=== PATIENT | male | born 1975 | race Two or more races ===

== ENCOUNTER 2016-07-19 19:38 | Inpatient (IN) | payer OTHER ==
[2016-07-19] MEDS ORDERED: ONDANSETRON 4 MG/2 ML VIAL IVP ONE (20:21)
[2016-07-19] MEDS ORDERED: NS 1,000 ML IV ONE (20:21)
--- NOTE | 2016-07-19 20:21 | EDPHY ---
H & P Time Seen by Provider: 07/19/16 19:58 HPI/ROS: CHIEF COMPLAINT: Right inguinal pain HISTORY OF PRESENT ILLNESS: The patient is a 41-year-old male who presents to the emergency department with worsening "hernia pain." The patient was diagnosed with a right inguinal hernia over year ago. It was confirmed by ultrasound in May of this year. He was told by the surgeon to come to the emergency department if he developed greater than 8/10 groin pain. For the last day he has had increasing right groin pain. It is now 9/10. It does not radiate. He denies nausea vomiting. No fevers or chills. REVIEW OF SYSTEMS: My complete review of systems is negative except as mentioned in the HPI. Past Medical/Surgical History: Includes diagnosed inguinal hernia Past surgical history: Denies Social history: The patient denies smoking Smoking Status: Never smoked Physical Exam: Vitals noted GENERAL: Mild acute distress, alert. HEENT: Eyes normal to inspection, normal pharynx, no signs of dehydration. NECK: No thyromegaly, no lymphadenopathy, supple. RESPIRATORY: Clear to auscultation bilaterally, no rales, rhonchi or wheezing. CVS: Regular rate and rhythm, no rubs, murmurs, or gallops. ABDOMEN: Soft, nontender, nondistended, no organomegaly. Groin: Right inguinal masses. Mildly tenderness palpation. Not reducible. No erythema or warmth. BACK: Normal to inspection, no CVA tenderness. SKIN: Normal color, no rash, warm, dry. No pallor. EXTREMITIES: No pedal edema, normal. NEURO/PSYCH: Alert and oriented, normal mood and affect, normal motor sensory exam. Constitutional: Initial Vital Signs Temperature (C) 36.8 C 07/19/16 19:40 Heart Rate 99 07/19/16 19:40 Respiratory Rate 18 07/19/16 19:40 Blood Pressure 166/102 H 07/19/16 19:40 O2 Sat (%) 98 07/19/16 19:40 O2 Delivery Mode Room Air Allergies/Adverse Reactions: No Known Allergies Allergy (Unverified 07/19/16 19:48) Home Medications: Medication Instructions Recorded NK [No Known Home Meds] 07/19/16 Medical Decision Making ED Course/Re-evaluation: A sensory scientist was used for patient interactions. In the emergency department I discussed possible etiologies with the patient. Answered all his questions. I contacted Dr. Eatsman from surgery. He will come to the emergency department to evaluate the patient. The patient was given an IV and had laboratory studies drawn. He is given morphine 4 mg IV for pain and Zofran 4 mg IV for nausea. Dr. Eastman came to the emergency department evaluated the patient. He feels the patient has an incarcerated hernia. He will admit the patient for further treatment and care. Differential Diagnosis: My differential includes but is not limited to hernia, incarcerated hernia, strangulated hernia, small-bowel obstruction, perforation, lymphadenopathy, LG - Data Points Laboratory Results: Laboratory Results 07/19/16 20:25 07/19/16 20:25 07/19/16 07/19/16 20:25 20:25 WBC 9.74 10^3/uL H 10^3/uL (3.80-9.50) RBC 5.43 10^6/uL 10^6/uL (4.40-6.38) Hgb 15.6 g/dL g/dL (13.7-17.5) Hct 45.6 % % (40.0-51.0) MCV 84.0 fL fL (81.5-99.8) MCH 28.7 pg pg (27.9-34.1) MCHC 34.2 g/dL g/dL (32.4-36.7) RDW 12.8 % % (11.5-15.2) Plt Count 242 10^3/uL 10^3/uL (150-400) MPV 10.6 fL fL (8.7-11.7) Neut % (Auto) 54.8 % % (39.3-74.2) Lymph % (Auto) 31.2 % % (15.0-45.0) [place] % (Auto) 9.0 % % (4.5-13.0) Eos % (Auto) 2.8 % % (0.6-7.6) Baso % (Auto) 0.9 % % (0.3-1.7) Nucleat RBC Rel Count 0.0 % % (0.0-0.2) Absolute Neuts (auto) 5.33 10^3/uL 10^3/uL (1.70-6.50) Absolute Lymphs (auto) 3.04 10^3/uL H 10^3/uL (1.00-3.00) Absolute Monos (auto) 0.88 10^3/uL H 10^3/uL (0.30-0.80) Absolute Eos (auto) 0.27 10^3/uL 10^3/uL (0.03-0.40) Absolute Basos (auto) 0.09 10^3/uL 10^3/uL (0.02-0.10) Absolute Nucleated RBC 0.00 10^3/uL 10^3/uL (0-0.01) Immature Gran % 1.3 % H % (0.0-1.1) Immature Gran # 0.13 10^3/uL H 10^3/uL (0.00-0.10) Sodium 135 mEq/L mEq/L (134-144) Potassium 4.4 mEq/L mEq/L (3.5-5.2) Chloride 100 mEq/L mEq/L (97-110) Carbon Dioxide 28 mEq/l mEq/l (22-31) Anion Gap 7 mEq/L L mEq/L (8-16) BUN 20 mg/dL mg/dL (7-23) Creatinine 1.0 mg/dL mg/dL (0.7-1.3) Estimated GFR > 60 Glucose 100 mg/dL mg/dL (70-100) Calcium 9.3 mg/dL mg/dL (8.5-10.4) Medications Given: Discontinued Medications Sodium Chloride (Ns) 1,000 mls @ 0 mls/hr IV ONCE ONE PRN Reason: Wide Open Stop: 07/19/16 20:22 Last Admin: 07/19/16 20:31 Dose: 1,000 mls Morphine Sulfate (Morphine) 4 mg IVP EDNOW ONE Stop: 07/19/16 20:22 Last Admin: 07/19/16 20:32 Dose: 4 mg Ondansetron HCl (Zofran) 4 mg IVP EDNOW ONE Stop: 07/19/16 20:22 Last Admin: 07/19/16 20:32 Dose: 4 mg Departure - Departure Disposition: [facility] Clinical Impression: Hernia, Incarcerated right inguinal hernia Condition: Good Referrals: UNKNOWN,DR [Other] - As per Instructions
[2016-07-19 20:43] LABS: % IMMATURE GRANULYOCYTES 1.3 % (0.0-1.1); ABSOLUTE IMMATURE GRANULOCYTES 0.13 10^3/uL (0.00-0.10); ADD DIFF? NO; ADD MORPH? NO; ADD SCAN? NO; ATYPICAL LYMPHOCYTE FLAG 0 (0-99); FRAGMENT RBC FLAG 0 (0-99); HEMATOCRIT 45.6 % (40.0-51.0); HEMOGLOBIN 15.6 g/dL (13.7-17.5); LEFT SHIFT FLG 10 (0-99); LIPEMIA HEMOLYSIS FLAG 90 (0-99); MEAN CELL HEMOGLOBIN 28.7 pg (27.9-34.1); MEAN CELL HEMOGLOBIN CONCENTR. 34.2 g/dL (32.4-36.7); MEAN PLATELET VOLUME 10.6 fL (8.7-11.7); PLATELET CLUMPS FLAG 0 (0-99); PLATELET COUNT 242 10^3/uL (150-400); RED BLOOD CELL COUNT 5.43 10^6/uL (4.40-6.38); RED CELL DISTRIBUTION WIDTH 12.8 % (11.5-15.2)
[2016-07-19 20:54] LABS: ANION GAP 7 mEq/L (8-16); CALCIUM 9.3 mg/dL (8.5-10.4); CARBON DIOXIDE 28 mEq/l (22-31); CHLORIDE 100 mEq/L (97-110); GLOMERULAR FILTRATION RATE > 60; GLUCOSE 100 mg/dL (70-100); POTASSIUM 4.4 mEq/L (3.5-5.2); SODIUM 135 mEq/L (134-144)
[2016-07-19 21:10] LABS: COLOR COLORLESS; LEUKOCYTE ESTERASE,URINE NEGATIVE (NEGATIVE); NITRITE,URINE NEGATIVE (NEGATIVE)
[2016-07-19] MEDS: LR 1,000 ML IV SCH (23:59)
[2016-07-20] MEDS: KETOROLAC 15 MG/1 ML SDV IVP SCH ×4 (00:01→17:56)
--- NOTE | 2016-07-20 00:08 | GHP ---
DATE OF ADMISSION: 07/19/2016 A 41-year-old gentleman who presents to the hospital with acute worsening of an incarcerated hernia. The patient has had a hernia for at least 1 year. He works as a jackhammer splitter operator and today, started havi ng increased pain in the right groin. He ate dinner at 7 o'clock in the evening, after which he got severe worsening of his pain. Denies any vomiting, nausea, diarrhea, but he is not passing any fla tus. PAST MEDICAL HISTORY: Not significant for any other medications, hospitalizations, or surgeries. FAMILY HISTORY: Unremarkable. ALLERGIES: He has no known drug allergies. MEDICATIONS: Takes no medication. REVIEW OF SYSTEMS: Unremarkable except previous dental work done. PHYSICAL EXAMINATION: VITAL SIGNS: Today, the patient has a temperature of 36.9, heart rate of 89, blood pressure of 156/95. Respiratory rate of 18, saturating 95% on room air. HEENT: His sclerae are anicteric. Oropharynx is without lesions. He has had previous dental work. There is nothing that appears to be in disrepair. Extraocular motions are intact. No JVD, thyromegaly. Trachea is midline. LUNGS: Clear. HEART: Regular heart tones. S1 and S2. ABDOMEN: Softly distended. Non tender to palpation. Right groin has an incarcerated hernia which is mildly tender to palpation. U nable to reduce it at this time. His left groin has no hernia. EXTREMITIES: Without edema. Good range of motion. Pulses 2+ over 2+ radial, femoral, and dorsalis pedis. SKIN: Normal turgor and t one. PSYCH: He has good mood and affect. LABORATORY STUDIES: White blood cell count of 9.7, hemoglobin of 15 with a hematocrit of 45, platel et count of 242 without a left shift. He has sodium 135, potassium 4.4, chloride 100, bicarb 28, BU N 22. Creatinine 1.0. Calcium 9.3 with a glucose of 100. UA is negative. IMPRESSION: Incarcerated inguinal hernia. PLAN: Laparoscopic inguinal hernia repair. Risks, benefits, and alternatives have been outlined to the patient through an speed winder. All questions were addressed. We will plan to proceed at the earliest opportunity. The patient ate just recently. Risk of aspiration outweighed the risk of inf arction of bowel. Therefore, we are waiting until an appropriate time, which we will proceed with s [place]. If the patient's condition worsens in the interim, we will consider emergent procedure. /[id number]/MODL
[2016-07-20] MEDS ORDERED: LIDOCAINE 1% 30 ML SDV ONE (05:48)
[2016-07-20] MEDS ORDERED: SKIN ADHESIVE (DERMABOND) 1 EACH TP ONE (05:48)
[2016-07-20] MEDS ORDERED: BUPIVACAINE 0.5% 30 ML SDV ONE (05:48)
[2016-07-20] MEDS ORDERED: KETOROLAC 30 MG/1 ML SDV ONE (05:54)
[2016-07-20] MEDS ORDERED: DEXAMETHASONE 4 MG/ML VIAL ONE (05:54)
[2016-07-20] MEDS ORDERED: ROCURONIUM 50 MG/5 ML VIAL ONE (05:54)
[2016-07-20] MEDS ORDERED: MIDAZOLAM 2 MG/2 ML VIAL ONE (05:54)
[2016-07-20] MEDS ORDERED: ONDANSETRON 4 MG/2 ML VIAL ONE (05:54)
[2016-07-20] MEDS ORDERED: LIDOCAINE 2% 5 ML SDV ONE (05:55)
[2016-07-20] MEDS ORDERED: PROPOFOL 200 MG/20 ML VIAL ONE (05:56)
[2016-07-20] MEDS ORDERED: fentaNYL 100 MCG/2 ML INJ ONE ×2 (05:56→07:07)
[2016-07-20] MEDS ORDERED: SUGAMMADEX SODIUM 200 MG/2 ML VIAL IVP ONE (06:48)
--- NOTE | 2016-07-20 06:56 | POSTOPPROG ---
Post Op Note Date of Operation: 07/20/16 Surgeon: Blair Eastman Anesthesiologist: Flako Anesthesia: LMA Pre-op Diagnosis: rih incarcerated Post-op Diagnosis: same Indication: pain Procedure: Lap TEP RIH with 3D max Findings: incarcerated indirect with lipoma Inf/Abcess present in the surg proc area at time of surgery?: No Complications: none Specimen(s): none
[2016-07-20] MEDS ORDERED: HYDROmorphONE/DILAUDID 1 MG/ML SYR ONE (07:07)
--- NOTE | 2016-07-20 08:33 | GOP ---
DATE OF OPERATION: SURGEON: Blair Eastamn MD ANESTHESIA: General LMA anesthesia was used. ANESTHESIOLOGIST: Dr. Arriola. PREOPERATIVE DIAGNOSIS: Incarcerated inguinal hernia. POSTOPERATIVE DIAGNOSIS: Incarcerated inguinal hernia. PROCEDURE PERFORMED: Laparoscopic total extraperitoneal inguinal hernia repair with 3D Bard meshmariela. FINDINGS: SPECIMENS: No specimens. INDICATIONS: This 41-year-old gentleman presents with incarcerated inguinal hernia. DESCRIPTION OF PROCEDURE: Patient was brought into the operating room. After induction of general LMA anesthesia in the supine position, the abdomen was prepped with chlorhexidine and draped sterile ly. Time-out procedure was performed according to the institutional standards. Local anesthetic is infused in the skin and subcu tissues of the trocar sites. Open preperitoneal balloon dissection a nd trocar placement was then performed on the right side of the rectus sheath. A large incarcerated inguinal hernia was identified. This was reduced. The distal end of the hernia sac was very thick and stuck to the chest wall. This was divided bluntly and closed using Ligaclips. After insuring lipoma of the cord was also reduced, the indirect inguinal hernia was then patched using a 3D Max me sh to interpose between the hernia defect in the abdominal wall and the peritoneal sac. After insur ing hemostasis, the working trocars were removed, the preperitoneal space was deflated, and the fasc ia was then reapproximated using 0 Vicryl at the level of the fascia the umbilical incision. All 3 ports were then reapproximated at skin level using 4-0 Monocryl. Dermabond was applied, the patient awakened, and LMA removed. Needle, instrument, and sponge counts were verified to be correct x2. He was taken to recovery room in stable condition. No immediate complications. COMPLICATIONS: No complications. /[id number]/MODL
[2016-07-20] MEDS: HYDROmorphONE/DILAUDID 1 MG/ML SYR IVP PRN ×3 (09:32→22:12)
[2016-07-20] MEDS: oxyCODONE IR 5 MG TAB PO PRN ×3 (09:33→20:22)
[2016-07-20] MEDS: ONDANSETRON 4 MG/2 ML VIAL IVP PRN (12:27)
--- NOTE | 2016-07-20 16:15 | SOAPPROG ---
SOAP Progress Note Assessment/Plan: Assessment/Plan: Pain worsening post op possible missed appy in the presence of prior incarcerated RIH Plan on CT scan this evening. 07/20/16 16:14 Objective: Vital Signs Temp Pulse Resp BP Pulse Ox 36.8 C 89 16 134/77 H 97 07/20/16 10:54 07/20/16 10:54 07/20/16 10:54 07/20/16 10:54 07/20/16 10:54 07/19/16 07/20/16 07/21/16 05:59 05:59 05:59 Intake Total 1504 800 Output Total 0 Balance 1504 800 ICD10 Worksheet Patient Problems: Problems Problem Status Onset Hernia Acute Incarcerated right inguinal hernia Acute
[2016-07-20] MEDS ORDERED: IOPAMIDOL (ISOVUE 370) 100 ML BTL IV ONE (19:57)
[2016-07-21] MEDS: KETOROLAC 15 MG/1 ML SDV IVP SCH ×5 (00:55→23:34)
[2016-07-21] MEDS: HYDROmorphONE/DILAUDID 1 MG/ML SYR IVP PRN ×3 (03:50→21:08)
[2016-07-21] MEDS: LR 1,000 ML IV SCH ×2 (05:22→16:34)
[2016-07-21] MEDS: oxyCODONE IR 5 MG TAB PO PRN ×3 (09:24→23:28)
--- NOTE | 2016-07-21 15:34 | SOAPPROG ---
SOAP Progress Note Assessment/Plan: Assessment/Plan: Pain worsening post op CT negative Incisional c/d Abd tender around incisions Poor appetite with oxycodone No BM passing flatus Incisional pain more than expected Morphine x1 Reassess over next 12-24 hr. 07/20/16 16:14 07/21/16 15:31 Objective: Vital Signs Temp Pulse Resp BP Pulse Ox 36.8 C 78 18 121/76 H 93 07/21/16 15:24 07/21/16 15:24 07/21/16 15:24 07/21/16 15:24 07/21/16 15:24 07/20/16 07/21/16 07/22/16 05:59 05:59 05:59 Intake Total 3101 Balance 3101 ICD10 Worksheet Patient Problems: Problems Problem Status Onset Hernia Acute Incarcerated right inguinal hernia Acute
[2016-07-21] MEDS: ONDANSETRON 4 MG/2 ML VIAL IVP PRN (17:24)
[2016-07-22] MEDS: LR 1,000 ML IV SCH ×2 (03:21→12:38)
[2016-07-22] MEDS: KETOROLAC 15 MG/1 ML SDV IVP SCH ×3 (05:48→17:46)
[2016-07-22] MEDS: oxyCODONE IR 5 MG TAB PO PRN ×2 (08:45→20:20)
[2016-07-22] MEDS: ONDANSETRON 4 MG/2 ML VIAL IVP PRN ×2 (13:58→17:47)
[2016-07-22] MEDS ORDERED: IOPAMIDOL (ISOVUE-300) 100 ML BTL IV ONE (16:47)
[2016-07-22 17:06] LABS: % IMMATURE GRANULYOCYTES 1.8 % (0.0-1.1); ADD DIFF? NO; ADD MORPH? NO; ADD SCAN? NO; ATYPICAL LYMPHOCYTE FLAG 0 (0-99); FRAGMENT RBC FLAG 0 (0-99); HEMATOCRIT 46.4 % (40.0-51.0); HEMOGLOBIN 15.7 g/dL (13.7-17.5); LEFT SHIFT FLG 20 (0-99); LIPEMIA HEMOLYSIS FLAG 90 (0-99); MEAN CELL HEMOGLOBIN 28.1 pg (27.9-34.1); MEAN CELL HEMOGLOBIN CONCENTR. 33.8 g/dL (32.4-36.7); MEAN CELL VOLUME 83.2 fL (81.5-99.8); MEAN PLATELET VOLUME 10.1 fL (8.7-11.7); PLATELET CLUMPS FLAG 0 (0-99); PLATELET COUNT 240 10^3/uL (150-400); RED BLOOD CELL COUNT 5.58 10^6/uL (4.40-6.38); RED CELL DISTRIBUTION WIDTH 12.7 % (11.5-15.2)
[2016-07-22] MEDS ORDERED: hydrALAZINE 20 MG/ML VIAL IVP PRN (17:21)
--- NOTE | 2016-07-22 17:26 | SOAPPROG ---
SOAP Progress Note Assessment/Plan: Assessment/Plan: CT abdomen negative Tolerated diet +BM, 500 ml u/o this pm Bladder scan 120 ml Vomited x2 liquid with new onset headache- prior hx of CVA age 14 gets chronic h/a with change in MS Incisional c/d Abd tender around incisions passing flatus Incisional pain more than expected Morphine Hydralazine CT head CBC, chem stat Reassess over next 12-24 hr. 07/20/16 16:14 07/21/16 15:31 07/22/16 17:24 Objective: Vital Signs Temp Pulse Resp BP Pulse Ox 36.7 C 80 14 151/107 H 95 07/22/16 16:31 07/22/16 16:31 07/22/16 16:31 07/22/16 16:31 07/22/16 16:31 Laboratory Results 07/22/16 16:58 07/21/16 07/22/16 07/23/16 05:59 05:59 05:59 Intake Total 3101 3436 Output Total 800 Balance 3101 6549 ICD10 Worksheet Patient Problems: Problems Problem Status Onset Hernia Acute Incarcerated right inguinal hernia Acute
[2016-07-22 17:42] LABS: ALANINE AMINOTRANSFERASE 37 IU/L (21-72); ALBUMIN 4.4 g/dL (3.5-5.0); ALKALINE PHOSPHATASE 73 IU/L (38-126); ANION GAP 12 mEq/L (8-16); ASPARTATE AMINOTRANSFERASE 24 IU/L (17-59); BILIRUBIN,TOTAL 0.6 mg/dL (0.1-1.4); CALCIUM 10.5 mg/dL (8.5-10.4); CARBON DIOXIDE 27 mEq/l (22-31); CHLORIDE 95 mEq/L (97-110); CREATININE 0.7 mg/dL (0.7-1.3); GLOMERULAR FILTRATION RATE > 60; GLUCOSE 123 mg/dL (70-100); POTASSIUM 4.6 mEq/L (3.5-5.2); SODIUM 134 mEq/L (134-144); TOTAL PROTEIN 7.8 g/dL (6.3-8.2)
[2016-07-22] MEDS ORDERED: BISACODYL 10 MG SUPP PR PRN (20:42)
[2016-07-22] MEDS ORDERED: MAGNESIUM HYDROXIDE 30 ML UDCUP PO PRN (20:42)
[2016-07-22] MEDS ORDERED: LACTULOSE 20 GM/30 ML UDCUP PO PRN (20:42)
[2016-07-22] MEDS ORDERED: POLYETHYLENE GLYCOL 3350 17 GM PKT PO PRN (20:42)
[2016-07-22] MEDS: SENNOSIDES/DOCUSATE SODIUM TAB PO SCH (21:37)
[2016-07-23] MEDS: KETOROLAC 15 MG/1 ML SDV IVP SCH ×5 (00:10→23:14)
[2016-07-23] MEDS: LR 1,000 ML IV SCH ×3 (01:32→22:20)
[2016-07-23] MEDS: oxyCODONE IR 5 MG TAB PO PRN ×3 (07:34→23:14)
[2016-07-23] MEDS: SENNOSIDES/DOCUSATE SODIUM TAB PO SCH ×2 (09:13→20:08)
--- NOTE | 2016-07-23 10:20 | SOAPPROG ---
SOAP Progress Note Assessment/Plan: Assessment/Plan: CT abdomen negative 07/[address] head 07/22 negative Tolerated diet +BM No further emesis today vomited x2 liquid with new onset headache- 07/22 prior hx of CVA age 14 gets chronic h/a with change in MS AA&O RRR CTAAbd NABS Incisions c/d, tender around incisions, no signs of infection Incisional pain more than expected Morphine Hydralazine CT head normal mild leucocytosis Reassess over next 12-24 hr. anticipate d/c tomorrow 07/23/16 10:17 Objective: Vital Signs Temp Pulse Resp BP Pulse Ox 37 C 70 16 109/75 95 07/23/16 07:28 07/23/16 07:28 07/23/16 07:28 07/23/16 07:28 07/23/16 07:28 Laboratory Results 07/22/16 16:58 07/22/16 16:58 07/22/16 07/23/16 07/24/16 05:59 05:59 05:59 Intake Total 5492 3084 Output Total 800 Balance 9444 3086 ICD10 Worksheet Patient Problems: Problems Problem Status Onset Hernia Acute Incarcerated right inguinal hernia Acute
[2016-07-23] MEDS: ONDANSETRON 4 MG/2 ML VIAL IVP PRN (20:07)
[2016-07-24] MEDS: KETOROLAC 15 MG/1 ML SDV IVP SCH (05:48)
[2016-07-24 08:35] VITALS: BP 125/80; PULSE 82; RESP 16; TEMP 98.6; O2SAT 94
[2016-07-24] MEDS: oxyCODONE IR 5 MG TAB PO PRN (08:52)
[2016-07-24] MEDS: SENNOSIDES/DOCUSATE SODIUM TAB PO SCH (08:52)
== END 2016-07-24 12:10 | disposition home or self-care (01) | DRG 355 ==
LOC: F1N 22:01 → OBSVTOIN 07-20 16:14
PROVIDERS: ADMIT Surgery; ATTEND Surgery
PROC: 0WUF4JZ Supplement Abdominal Wall with Synthetic Substitute, Percutaneous Endoscopic Approach (ICD-10-PCS; principal; 2016-07-20 06:00)
DX: K40.30 Unilateral inguinal hernia, with obstruction, without gangrene, not specified as recurrent (principal); R51 Headache; Z86.73 Personal history of transient ischemic attack (TIA), and cerebral infarction without residual deficits
CPT/HCPCS: 96374; C1727; C1781; G0378; J0360; J1100; J1170; J1885; J2250; J2405; J2704; J3010; Q9967

== ENCOUNTER 2017-08-21 22:12 | Emergency (ER) | payer OTHER ==
[2017-08-21 22:24] VITALS: RESP 18
[2017-08-21] MEDS ORDERED: LIDOCAINE 4%/MENTHOL 1% PATCH TD ONE (22:30)
[2017-08-21] MEDS ORDERED: CYCLOBENZAPRINE 10 MG TAB PO ONE (22:30)
--- NOTE | 2017-08-21 22:35 | EDPHY ---
H & P Smoking Status: Never smoked Time Seen by Provider: 08/21/17 22:26 HPI/ROS: CHIEF COMPLAINT: Low back pain, impacted by dishwashing tray HISTORY OF PRESENT ILLNESS: 42-year-old male arrives via private vehicle. 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 He is complaining of midline lumbar pain reproducible with movement, ambulation. No paresthesias. No fall from height. No abdominal pain. No incontinence no retention no saddle anesthesia. No prior history of chronic back issues. PRIMARY CARE PROVIDER: REVIEW OF SYSTEMS: A ten point review of systems was performed and is negative with the exception of the items mentioned in the HPI PAST MEDICAL/SURGICAL HISTORY: no anticoagulant use, no relevant medical/ surgical history SOCIAL HISTORY: No alcohol use. Works at a [employer] PHYSICAL EXAM 1) GENERAL: Well-developed, well-nourished, alert and oriented. Appears uncomfortable when he is asked to move. 2) HEAD: Normocephalic, atraumatic 3) HEENT: Pupils equal, round, reactive to light bilaterally.. 4) NECK: No cervical collar is on. Posterior cervical spine is nontender, no stepoff, no effusion. Full range of motion which does not elicit any midline cervical spine pain, no posterior midline tenderness, no step-off. 5) LUNGS: Clear to auscultation bilaterally, no wheezes, no rhonchi, no retractions.. 6) HEART: [Regular rate and rhythm, 7) ABDOMEN: No guarding, no rebound, no focal tenderness, no peritoneal signs, no signs of trauma, no ecchymosis 8) MUSCULOSKELETAL: Moving all extremities, no focal areas of tenderness, no obvious trauma. 9) BACK: Tender to palpation midline approximately L3 level. No visible trauma such as abrasion or laceration. Patella and Achilles reflexes are intact and equal bilaterally strength 5/5. No flank pain. 10) SKIN: No laceration. No abrasion DIFFERENTIAL DIAGNOSIS: [In no particular including but not limited to fracture , sprain, strain, myofascial strain, dislocation, cauda equina (Manju,D Ronda) Constitutional: Initial Vital Signs Temperature (C) 36.4 C 08/21/17 22:19 Heart Rate 72 08/21/17 22:19 Respiratory Rate 18 08/21/17 22:19 Blood Pressure 136/88 H 08/21/17 22:19 O2 Sat (%) 95 08/21/17 22:19 O2 Delivery Mode Room Air Allergies/Adverse Reactions: No Known Allergies Allergy (Unverified 07/19/16 19:48) Home Medications: Medication Instructions Recorded Cyclobenzaprine [Flexeril 10 MG 10 mg PO TID #15 tab 08/21/17 (RX)] Lidocaine [Lidoderm] 1 each TP BID #30 adh..patch 08/21/17 MDM/Departure - MDM Imaging Results: Imaging Impressions Lumbar Spine X-Ray 08/21/17 22:31 Impression: Scoliosis and degenerative changes are seen. If symptoms persist, MRI could be considered for further evaluation. Images reviewed by myself (Vivien Nunes) Medications Given: Discontinued Medications Cyclobenzaprine HCl (Flexeril) 10 mg PO EDNOW ONE Stop: 08/21/17 22:31 Last Admin: 08/21/17 23:00 Dose: 10 mg Miscellaneous Information (Patch Removal) 1 ea TD DAILY21 ALEXIS Stop: 02/18/18 20:59 Last Admin: 08/21/17 23:06 Dose: 1 ea Miscellaneous Medication (Icy Hot Lidocaine/Menthol 4%/1% Patch) 1 patch TD EDNOW ONE Stop: 08/21/17 22:31 Last Admin: 08/21/17 23:00 Dose: 1 patch ED Course/Re-evaluation: 10:30 p.m.: Will obtain x-rays and re-evaluated. Care of patient under supervision of secondary supervising physician Dr Mann. Doubt cauda equina. (Vivien Nunes) PHYSICIAN DOCUMENTATION: The patient was evaluated and managed by the Physician Toy Mechanic. My co- signature indicates that I have reviewed this chart and I agree with the findings and plan of care as documented. I am the secondary supervising physician. (Vernell Mann) - Depart Disposition: Home, Routine, Self-Care Clinical Impression: Low back pain Condition: Good Instructions: Acute Low Back Pain (ED) Additional Instructions: Seek medical attention if you develop new or worsening pain, if you develop bladder or bowel dysfunction, numbness around your perineum, foot drop, or any other symptoms that concern you. Stand Alone Forms: Work Comp Follow Up, Work Excuse Prescriptions: Cyclobenzaprine [Flexeril 10 MG (RX)] 10 mg PO TID #15 tab Lidocaine [Lidoderm] 1 each TP BID #30 adh..patch Referrals: Follow-up, with your work comp provider in 2 days [Other] - As per Instructions Print Language: [place]
[2017-08-21 23:30] VITALS: BP 121/86; PULSE 90; TEMP 97.9; O2SAT 94
[2017-08-22] MEDS ORDERED: PATCH REMOVAL 1 EA PATCH TD SCH (21:00)
== END 2017-08-21 23:27 | disposition home or self-care (01) ==
DX: S39.92XA Unspecified injury of lower back, initial encounter (principal); W22.8XXA Striking against or struck by other objects, initial encounter; Y92.190 Kitchen in other specified residential institution as the place of occurrence of the external cause; Y99.0 Civilian activity done for income or pay; Y93.G1 Activity, food preparation and clean up